=== PATIENT | female | born 2000 | race Caucasian/White ===

== ENCOUNTER 2021-04-16 18:44 | Emergency (ER) | payer OTHER ==
[~2021-04-16] VITALS: Ht 167.6 cm; Wt 100.2 kg
== END 2021-04-17 02:54 | disposition left against medical advice (07) ==
LOC: M ED 18:44
DX: Z53.21 Procedure and treatment not carried out due to patient leaving prior to being seen by health care provider (principal)

== ENCOUNTER → 2021-11-14 | Outpatient (CLI) | payer OTHER | LOC: M PLALAB 13:37 | PROVIDERS: ATTEND Obstetrics & Gynecology | DX: Z34.90 Encounter for supervision of normal pregnancy, unspecified, unspecified trimester (principal) ==

== ENCOUNTER → 2022-08-13 | Outpatient (CLI) | payer OTHER ==
[2022-08-13 15:13] LABS: HEMOGLOBIN 14.1 g/dl (12.0-15.5); MEAN CORPUSCULAR HEMOGLOBIN 31.6 pg (27.0-33.0); MEAN CORPUSCULAR HGB CONC 33.6 g/dl (32.0-36.5); MEAN CORPUSCULAR VOLUME 94.2 fl (80.0-96.0); PLATELET COUNT, AUTOMATED 334 10^3/uL (150-450); RED BLOOD COUNT 4.46 10^6/uL (4.00-5.40)
[2022-08-13 16:31] LABS: HIV 1&2 SCREEN ATELLICA NEGATIVE (NEGATIVE)
[2022-08-13 16:35] LABS: GC DNA AMPLIFICATION NEGATIVE (NEGATIVE)
== END ==
LOC: M PLALAB 10:30
PROVIDERS: ATTEND Advanced Practice Midwife
DX: Z34.81 Encounter for supervision of other normal pregnancy, first trimester (principal)

== ENCOUNTER → 2022-09-09 | Outpatient (REF) | payer OTHER | LOC: M SFHCWAGY 13:12 | PROVIDERS: ATTEND Obstetrics & Gynecology | DX: Z34.81 Encounter for supervision of other normal pregnancy, first trimester (principal); Z3A.00 Weeks of gestation of pregnancy not specified ==

== ENCOUNTER → 2022-10-09 | Outpatient (REF) | payer OTHER | LOC: M SMT 13:08 | PROVIDERS: ATTEND Advanced Practice Midwife | DX: Z34.82 Encounter for supervision of other normal pregnancy, second trimester (principal) ==

== ENCOUNTER → 2022-11-01 | Outpatient (CLI) | payer OTHER | LOC: M WHC 08:17 | PROVIDERS: ATTEND Advanced Practice Midwife | DX: Z34.82 Encounter for supervision of other normal pregnancy, second trimester (principal) ==

== ENCOUNTER → 2022-11-21 | Outpatient (CLI) | payer OTHER | LOC: M WHC 06:39 | PROVIDERS: ATTEND Obstetrics & Gynecology | DX: Z34.92 Encounter for supervision of normal pregnancy, unspecified, second trimester (principal); Z3A.23 23 weeks gestation of pregnancy ==

== ENCOUNTER → 2022-12-09 | Outpatient (CLI) | payer OTHER ==
[2022-12-09 16:32] LABS: HEMATOCRIT 32.4 % (36.0-47.0); HEMOGLOBIN 10.7 g/dl (12.0-15.5); MEAN CORPUSCULAR HEMOGLOBIN 31.8 pg (27.0-33.0); MEAN CORPUSCULAR VOLUME 96.4 fl (80.0-96.0); PLATELET COUNT, AUTOMATED 260 10^3/uL (150-450); RED BLOOD COUNT 3.36 10^6/uL (4.00-5.40); WHITE BLOOD COUNT 7.4 10^3/uL (4.0-10.0)
== END ==
LOC: M PLALAB 12:20
PROVIDERS: ATTEND Obstetrics & Gynecology
DX: Z34.92 Encounter for supervision of normal pregnancy, unspecified, second trimester (principal)

== ENCOUNTER → 2023-02-17 | Outpatient (REF) | payer OTHER | LOC: M PLALAB 14:23 | PROVIDERS: ATTEND Advanced Practice Midwife | DX: Z36.85 Encounter for antenatal screening for Streptococcus B (principal) ==

== ENCOUNTER → 2023-03-10 | Outpatient (CLI) | payer OTHER ==
[2023-03-10 13:59] LABS: HEMATOCRIT 35.1 % (36.0-47.0); HEMOGLOBIN 12.1 g/dl (12.0-15.5); MEAN CORPUSCULAR HEMOGLOBIN 32.8 pg (27.0-33.0); MEAN CORPUSCULAR HGB CONC 34.5 g/dl (32.0-36.5); MEAN CORPUSCULAR VOLUME 95.1 fl (80.0-96.0); PLATELET COUNT, AUTOMATED 233 10^3/uL (150-450); RED BLOOD COUNT 3.69 10^6/uL (4.00-5.40); WHITE BLOOD COUNT 9.4 10^3/uL (4.0-10.0)
[2023-03-10 14:23] LABS: TOTAL PROTEIN,RANDOM URINE 25.2 MG/DL (0.0-14.0)
[2023-03-10 14:25] LABS: URIC ACID 6.2 MG/DL (3.1-7.8)
[2023-03-10 14:27] LABS: CREATININE,RANDOM URINE 69.7 MG/DL; LDH LACTATE DEHYDROGENASE 157 U/L (120-246)
[2023-03-10 14:28] LABS: ALT/SGPT 14 U/L (7.0-40); AST/SGOT 16 U/L (<34); BILIRUBIN,TOTAL 0.3 MG/DL (0.3-1.2); CREATININE FOR GFR 0.66 MG/DL (0.55-1.30); GLOMERULAR FILTRATION RATE > 60.0 (>60)
== END ==
LOC: M PLALAB 11:16
PROVIDERS: ATTEND Specialist
DX: Z34.03 Encounter for supervision of normal first pregnancy, third trimester (principal)

== ENCOUNTER 2023-03-11 19:00 | Inpatient (IN) | payer OTHER ==
[~2023-03-11] VITALS: Ht 167.6 cm; Wt 107.0 kg
[2023-03-11] VITALS (9 sets, daily range): BP systolic 138–211; BP diastolic 86–127
[2023-03-11] MEDS ORDERED: TRANEXAMIC ACID INJection 1,000 MG in NS 100 ML IV PRN (19:50)
[2023-03-11] MEDS ORDERED: OXYTOCIN DRIP 30 UNITS in IV 1 EA IV PRN (19:50)
[2023-03-11] MEDS ORDERED: LIDOCAINE 1% MDV 20ML VIAL INFIL PRN (19:50)
[2023-03-11] MEDS ORDERED: CARBOPROST TROMETHAMINE 250 MCG/ML AMP IM PRN (19:50)
[2023-03-11] MEDS ORDERED: LABETALOL 100MG/20ML VIAL IV STA ×2 (20:08→20:31)
[2023-03-11] MEDS ORDERED: LABETALOL 100MG/20ML VIAL As Ordered ONE (20:09)
[2023-03-11] MEDS: miSOPROStol 50MCG 1/2 TABLET PO SCH (20:18)
[2023-03-11 20:22] LABS: HEMATOCRIT 33.8 % (36.0-47.0); HEMOGLOBIN 11.9 g/dl (12.0-15.5); MEAN CORPUSCULAR HEMOGLOBIN 32.6 pg (27.0-33.0); MEAN CORPUSCULAR HGB CONC 35.2 g/dl (32.0-36.5); MEAN CORPUSCULAR VOLUME 92.6 fl (80.0-96.0); PLATELET COUNT, AUTOMATED 237 10^3/uL (150-450); RED BLOOD COUNT 3.65 10^6/uL (4.00-5.40); WHITE BLOOD COUNT 8.3 10^3/uL (4.0-10.0)
[2023-03-11 20:48] LABS: URIC ACID 6.1 MG/DL (3.1-7.8)
[2023-03-11 20:50] LABS: LDH LACTATE DEHYDROGENASE 161 U/L (120-246)
[2023-03-11 20:51] LABS: ALT/SGPT 14 U/L (7.0-40); AST/SGOT 15 U/L (<34); BILIRUBIN,TOTAL 0.3 MG/DL (0.3-1.2); CREATININE FOR GFR 0.65 MG/DL (0.55-1.30); GLOMERULAR FILTRATION RATE > 60.0 (>60)
[2023-03-11] MEDS: LABETALOL 200 MG TAB PO SCH (21:07)
[2023-03-12] VITALS (25 sets, daily range): BP systolic 116–158; BP diastolic 66–104
[2023-03-12] MEDS: miSOPROStol 50MCG 1/2 TABLET PO SCH ×3 (00:18→09:50)
[2023-03-12] MEDS: LABETALOL 200 MG TAB PO SCH ×2 (08:23→22:09)
[2023-03-12 12:58] LABS: CREATININE,RANDOM URINE 62.7 MG/DL
[2023-03-12] MEDS ORDERED: OXYTOCIN DRIP 30 UNITS in IV 1 EA IV SCH (14:05)
[2023-03-12] MEDS ORDERED: LR 1,000 ML IV SCH (14:05)
[2023-03-12] MEDS ORDERED: OXYTOCIN 30UNITS IN 0.9% NaCl 500ML IV BAG As Ordered ONE (14:06)
[2023-03-12] MEDS ORDERED: ePHEDrine SULFATE 25 MG/5 ML(5MG/ML) SYRINGE IVP PRN (20:25)
[2023-03-12] MEDS ORDERED: NALOXONE INJ 0.4MG/1ML VIAL IV PRN (20:25)
[2023-03-12] MEDS ORDERED: LR 500 ML IV PRN (20:25)
[2023-03-12] MEDS ORDERED: EPIDURAL/PCA KEYS XX PRN (20:25)
[2023-03-12] MEDS ORDERED: FENTANYL/ROPIVACAINE/NACL BAG 100 ML EPIDURAL SCH (20:25)
[2023-03-12] MEDS ORDERED: ONDANSETRON 4MG 2ML VIAL IV PRN (20:25)
[2023-03-12] MEDS ORDERED: diphenhydrAMINE 50MG/ML VIAL IV PRN (20:25)
[2023-03-13 02:49] LABS: CORD GAS ABE V -6.3; CORD GAS HCO3 V 20.8 MMOL/L; CORD GAS O2 SAT V 35.1 %; CORD GAS PCO2 V 46.3 mmHg; CORD GAS PH V 7.27 UNITS; CORD GAS PO2 V 17.2 mmHg; CORD GAS SBC V 17.8 MMOL/L; CORD GAS TCO2 V 22.2 MMOL/L
[2023-03-13] MEDS ORDERED: OXYTOCIN 30UNITS IN 0.9% NaCl 500ML IV BAG As Ordered ONE (03:13)
[2023-03-13] MEDS ORDERED: ACETAMINOPHEN 500 MG TAB PO PRN (04:40)
[2023-03-13] MEDS ORDERED: DIBUCAINE 1% OINTMENT 30GM TOP PRN (04:40)
[2023-03-13] MEDS ORDERED: ACETAMINOPHEN TAB 650MG DOSE (2X325MG) PO PRN (04:40)
[2023-03-13] MEDS ORDERED: ANUSOL HC CREAM 30GM TOP PRN (04:40)
[2023-03-13] MEDS ORDERED: IBUPROFEN 600MG TAB PO PRN (04:40)
[2023-03-13] MEDS ORDERED: RHOGAM 300MCG (1500IU) INJ IM SCH (04:40)
[2023-03-13] MEDS ORDERED: MOM 30ML SUSPENSION UDC PO PRN (04:40)
[2023-03-13 06:19] VITALS: BP 134/80; O2SAT 97
[2023-03-13] MEDS: PRENATAL VITAMINS CHEWABLE TABLET PO SCH (09:56)
[2023-03-13] MEDS: FERROUS SULFATE 325MG TAB PO SCH (09:56)
[2023-03-13] MEDS: DOCUSATE SODIUM 100MG CAPSULE PO SCH ×2 (09:56→20:03)
[2023-03-13] MEDS: IBUPROFEN 800 MG TAB PO PRN ×2 (09:56→20:03)
[2023-03-13 10:00] VITALS: BP 120/61; O2SAT 98
[2023-03-13 18:00] VITALS: BP 135/89; O2SAT 98
[2023-03-14 06:00] VITALS: BP 136/85
[2023-03-14 06:56] LABS: HEMATOCRIT 28.6 % (36.0-47.0); HEMOGLOBIN 9.7 g/dl (12.0-15.5); MEAN CORPUSCULAR HEMOGLOBIN 32.6 pg (27.0-33.0); MEAN CORPUSCULAR HGB CONC 33.9 g/dl (32.0-36.5); PLATELET COUNT, AUTOMATED 194 10^3/uL (150-450); RED BLOOD COUNT 2.98 10^6/uL (4.00-5.40); WHITE BLOOD COUNT 13.4 10^3/uL (4.0-10.0)
[2023-03-14] MEDS: FERROUS SULFATE 325MG TAB PO SCH (08:18)
[2023-03-14] MEDS: IBUPROFEN 800 MG TAB PO PRN (08:18)
[2023-03-14] MEDS: PRENATAL VITAMINS CHEWABLE TABLET PO SCH (08:18)
[2023-03-14] MEDS: DOCUSATE SODIUM 100MG CAPSULE PO SCH (08:18)
[2023-03-15] MEDS ORDERED: MEASLES,MUMPS,RUBELLA VACCINE INJ (MMR-II) SC.IMMUN ONE (09:00)
== END 2023-03-14 14:25 | disposition home or self-care (01) | DRG 560 ==
LOC: M LDO 19:00 → M LDI 19:37 → M OBS 03-13 06:17
PROVIDERS: ADMIT Obstetrics & Gynecology; ATTEND Obstetrics & Gynecology
PROC: 3E033VJ Introduction of Other Hormone into Peripheral Vein, Percutaneous Approach (ICD-10-PCS; 2023-03-11)
PROC: 3E0P7VZ Introduction of Hormone into Female Reproductive, Via Natural or Artificial Opening (ICD-10-PCS; 2023-03-11)
PROC: 10907ZC Drainage of Amniotic Fluid, Therapeutic from Products of Conception, Via Natural or Artificial Opening (ICD-10-PCS; 2023-03-12)
PROC: 10E0XZZ Delivery of Products of Conception, External Approach (ICD-10-PCS; principal; 2023-03-13)
PROC: 0HQ9XZZ Repair Perineum Skin, External Approach (ICD-10-PCS; 2023-03-13)
DX: O14.94 Unspecified pre-eclampsia, complicating childbirth (principal); O32.6XX0 Maternal care for compound presentation, not applicable or unspecified; Z37.0 Single live birth; Z3A.39 39 weeks gestation of pregnancy; O70.0 First degree perineal laceration during delivery

== ENCOUNTER 2023-08-30 20:01 | Emergency (ER) | payer MEDICAID, OTHER ==
[~2023-08-30] VITALS: Ht 165.1 cm; Wt 90.4 kg
[2023-08-30 20:02] VITALS: BP 138/95; TEMP 98; O2SAT 100
[2023-08-30 21:02] LABS: BASO % 0.6 % (0.0-1.0); EOS # 0.1 10^3/uL (0.0-0.5); EOS % 2.2 % (0.0-3.0); HEMATOCRIT 39.3 % (36.0-47.0); HEMOGLOBIN 12.9 g/dl (12.0-15.5); LYMPH # 1.8 10^3/uL (1.5-5.0); LYMPH % 27.8 % (24.0-44.0); MEAN CORPUSCULAR HEMOGLOBIN 28.8 pg (27.0-33.0); MEAN CORPUSCULAR HGB CONC 32.8 g/dl (32.0-36.5); MEAN CORPUSCULAR VOLUME 87.7 fl (80.0-96.0); MONO # 0.5 10^3/uL (0.0-0.8); MONO % 7.7 % (2.0-8.0); NEUTROPHILS % 61.4 % (36.0-66.0); PLATELET COUNT, AUTOMATED 286 10^3/uL (150-450); RED BLOOD COUNT 4.48 10^6/uL (4.00-5.40); WHITE BLOOD COUNT 6.5 10^3/uL (4.0-10.0)
[2023-08-30 21:46] LABS: HCG, SERUM QUANTITATIVE 19.8 MIU/ML (<4.2)
[2023-08-30 21:48] LABS: BLOOD UREA NITROGEN 9 MG/DL (9-23); CALCIUM LEVEL 8.8 MG/DL (8.5-10.1); CARBON DIOXIDE LEVEL 25 MMOL/L (20-31); CHLORIDE LEVEL 106 MMOL/L (98-107); CREATININE FOR GFR 0.69 MG/DL (0.55-1.30); GLOMERULAR FILTRATION RATE > 60.0 (>60); GLUCOSE, FASTING 107 MG/DL (60-100); POTASSIUM SERUM 3.9 MMOL/L (3.5-5.1); SODIUM LEVEL 139 MMOL/L (136-145)
[2023-08-30 22:51] LABS: GC DNA AMPLIFICATION NEGATIVE (NEGATIVE)
[2023-08-30] MEDS ORDERED: metroNIDAZOLE (FLAGYL) 500MG TABLET PO ONE (23:00)
== END 2023-08-30 22:35 | disposition left against medical advice (07) ==
LOC: M ED 20:01
DX: N93.9 Abnormal uterine and vaginal bleeding, unspecified (principal); Z53.9 Procedure and treatment not carried out, unspecified reason

== ENCOUNTER 2023-09-08 04:50 | Emergency (ER) | payer OTHER ==
[~2023-09-08] VITALS: Ht 172.7 cm; Wt 89.3 kg
[2023-09-08 06:08] LABS: HCG, SERUM QUALITATIVE NEGATIVE (NEGATIVE)
[2023-09-08 07:46] LABS: BASO # 0.1 10^3/uL (0.0-0.2); BASO % 0.9 % (0.0-1.0); EOS # 0.2 10^3/uL (0.0-0.5); EOS % 2.8 % (0.0-3.0); HEMATOCRIT 36.1 % (36.0-47.0); HEMOGLOBIN 11.8 g/dl (12.0-15.5); LYMPH # 1.8 10^3/uL (1.5-5.0); LYMPH % 31.7 % (24.0-44.0); MEAN CORPUSCULAR HEMOGLOBIN 29.1 pg (27.0-33.0); MEAN CORPUSCULAR HGB CONC 32.7 g/dl (32.0-36.5); MEAN CORPUSCULAR VOLUME 89.1 fl (80.0-96.0); MONO # 0.5 10^3/uL (0.0-0.8); MONO % 9.1 % (2.0-8.0); NEUTROPHILS # 3.2 10^3/uL (1.5-8.5); NEUTROPHILS % 55.3 % (36.0-66.0); PLATELET COUNT, AUTOMATED 238 10^3/uL (150-450); RED BLOOD COUNT 4.05 10^6/uL (4.00-5.40); WHITE BLOOD COUNT 5.8 10^3/uL (4.0-10.0)
[2023-09-08 07:51] VITALS: BP 125/81; TEMP 97.6; O2SAT 99
[2023-09-08 08:14] LABS: ALBUMIN 3.3 G/DL (3.2-5.2); BILIRUBIN,DIRECT 0.3 MG/DL (<0.4); BILIRUBIN,TOTAL 0.9 MG/DL (0.3-1.2); CK-MB VALUE MASS 2.4 NG/ML (<3.6); TOTAL PROTEIN 6.2 G/DL (5.7-8.2)
[2023-09-08] MEDS: MAALOX 30 ML SUSP *UDC PO ONE (08:14)
[2023-09-08 08:15] LABS: MB/CK RELATIVE INDEX 0.97 (< OR =4)
== END 2023-09-08 09:04 | disposition home or self-care (01) ==
LOC: M ED 04:50
DX: R07.9 Chest pain, unspecified (principal); Z32.02 Encounter for pregnancy test, result negative

== ENCOUNTER 2024-03-28 15:43 | Emergency (ER) | payer OTHER ==
[~2024-03-28] VITALS: Ht 165.1 cm; Wt 86.4 kg
[2024-03-28 15:45] VITALS: BP 154/80; TEMP 98.2; O2SAT 98
[2024-03-28 16:21] LABS: BASO % 0.3 % (0.0-1.0); EOS # 0.1 10^3/uL (0.0-0.5); EOS % 1.2 % (0.0-3.0); HEMATOCRIT 41.6 % (36.0-47.0); HEMOGLOBIN 14.2 g/dl (12.0-15.5); LYMPH # 1.6 10^3/uL (1.5-5.0); LYMPH % 18.3 % (24.0-44.0); MEAN CORPUSCULAR HEMOGLOBIN 31.9 pg (27.0-33.0); MEAN CORPUSCULAR HGB CONC 34.1 g/dl (32.0-36.5); MEAN CORPUSCULAR VOLUME 93.5 fl (80.0-96.0); MONO # 0.6 10^3/uL (0.0-0.8); MONO % 6.7 % (2.0-8.0); NEUTROPHILS # 6.5 10^3/uL (1.5-8.5); NEUTROPHILS % 73.2 % (36.0-66.0); PLATELET COUNT, AUTOMATED 278 10^3/uL (150-450); RED BLOOD COUNT 4.45 10^6/uL (4.00-5.40); WHITE BLOOD COUNT 8.8 10^3/uL (4.0-10.0)
[2024-03-28 16:42] LABS: BLOOD UREA NITROGEN 10 MG/DL (9-23); CALCIUM LEVEL 9.4 MG/DL (8.5-10.1); CARBON DIOXIDE LEVEL 25 MMOL/L (20-31); CHLORIDE LEVEL 105 MMOL/L (98-107); CREATININE FOR GFR 0.72 MG/DL (0.55-1.30); GLOMERULAR FILTRATION RATE > 60.0 (>60); GLUCOSE, FASTING 99 MG/DL (60-100); POTASSIUM SERUM 4.4 MMOL/L (3.5-5.1); SODIUM LEVEL 138 MMOL/L (136-145)
[2024-03-28 16:57] LABS: HCG, SERUM QUANTITATIVE 44229.2 MIU/ML (<4.2)
[2024-03-28 17:29] LABS: Trichomonas vaginalis (AMP) NOT DETECTED (NEGATIVE)
[2024-03-28 17:53] LABS: GC DNA AMPLIFICATION NEGATIVE (NEGATIVE)
== END 2024-03-28 16:58 | disposition left against medical advice (07) ==
LOC: M ED 15:43
DX: Z53.21 Procedure and treatment not carried out due to patient leaving prior to being seen by health care provider (principal)

== ENCOUNTER → 2024-04-14 | Outpatient (CLI) | payer OTHER ==
[~2024-04-14] MED LIST: NITR100C3 PO
== END ==
LOC: M PLALAB 10:58
PROVIDERS: ATTEND Obstetrics & Gynecology
DX: Z34.80 Encounter for supervision of other normal pregnancy, unspecified trimester (principal)

== ENCOUNTER 2024-05-07 04:05 | Outpatient (CLI) | payer OTHER ==
[~2024-05-07] VITALS: Ht 165.1 cm; Wt 81.8 kg
[~2024-05-07 04:05] MED LIST changes: +CEFD1CAP9 PO; +PRENTAB45 PO
[2024-05-07 04:15] VITALS: BP 134/78
[2024-05-07] MEDS ORDERED: ACET-683 PO (04:20)
[2024-05-07 04:26] VITALS: BP 124/80
[2024-05-07] MEDS ORDERED: HOME MED LIST COMPLETE! XX SCH (04:35)
[2024-05-07 04:36] VITALS: BP 112/57
[2024-05-07 08:36] LABS: KETONE, URINE AUTO RFX NEGATIVE (NEGATIVE); LEUKOCYTE ESTERASE UR AUTO RFX 3+ (NEGATIVE); MUCUS, URINE RFX SMALL (NEGATIVE); NITRITE, URINE AUTO RFX NEGATIVE (NEGATIVE); RBC, URINE AUTO RFX 27 /HPF (0-3); SQUAM EPITHELIAL CELL UR AURFX 14 /HPF (0-6); TRANSITIONAL EPITHELIAL AU RFX 7 /HPF; WBC, URINE AUTO RFX 113 /HPF (0-3)
== END 2024-05-07 08:50 | disposition home or self-care (01) ==
LOC: MERGE 04:05 → M LDO 04:05
PROVIDERS: ATTEND Obstetrics & Gynecology
DX: O26.892 Other specified pregnancy related conditions, second trimester (principal); R10.2 Pelvic and perineal pain; Z87.59 Personal history of other complications of pregnancy, childbirth and the puerperium; Z3A.21 21 weeks gestation of pregnancy
CPT/HCPCS: 76816; 81001; 87086; G0463

== ENCOUNTER 2024-05-09 15:48 | Emergency (ER) | payer OTHER ==
[~2024-05-09] VITALS: Ht 165.1 cm; Wt 84.2 kg
[~2024-05-09 15:48] MED LIST changes: +ACET-683 PO
[2024-05-09 15:52] VITALS: BP 120/76; TEMP 97.7; O2SAT 97
== END 2024-05-09 17:44 | disposition left against medical advice (07) ==
LOC: MERGE 15:48 → M ED 15:48
DX: Z53.21 Procedure and treatment not carried out due to patient leaving prior to being seen by health care provider (principal)

== ENCOUNTER 2024-06-13 00:28 | Outpatient (CLI) | payer OTHER ==
[2024-06-13 00:31] VITALS: BP 129/91
[2024-06-13 00:42] VITALS: BP 128/84
[2024-06-13 00:52] VITALS: BP 125/82
[2024-06-13] MEDS ORDERED: HOME MED LIST COMPLETE! XX SCH (01:10)
== END 2024-06-13 03:46 | disposition home or self-care (01) ==
LOC: M LDO 00:28
PROVIDERS: ATTEND Obstetrics & Gynecology
DX: O26.892 Other specified pregnancy related conditions, second trimester (principal); R25.2 Cramp and spasm; Z87.59 Personal history of other complications of pregnancy, childbirth and the puerperium; Z3A.26 26 weeks gestation of pregnancy
CPT/HCPCS: 59025; G0463

== ENCOUNTER 2024-07-14 14:11 | Outpatient (CLI) | payer OTHER ==
[~2024-07-14] VITALS: Ht 165.1 cm; Wt 83.3 kg
[2024-07-14 14:30] VITALS: BP 124/76
[2024-07-14] MEDS ORDERED: PREN200C PO (14:34)
[2024-07-14] MEDS ORDERED: HOME MED LIST COMPLETE! XX SCH (14:35)
== END 2024-07-14 17:10 | disposition home or self-care (01) ==
LOC: M LDO 14:11
PROVIDERS: ATTEND Advanced Practice Midwife
DX: O26.893 Other specified pregnancy related conditions, third trimester (principal); O09.33 Supervision of pregnancy with insufficient antenatal care, third trimester; R10.30 Lower abdominal pain, unspecified; R10.2 Pelvic and perineal pain; Z91.198 Patient's noncompliance with other medical treatment and regimen for other reason; Z59.82 Transportation insecurity; Z3A.30 30 weeks gestation of pregnancy
CPT/HCPCS: 59025; G0463

== ENCOUNTER → 2024-07-28 | Outpatient (CLI) | payer OTHER ==
[~2024-07-28] MED LIST changes: +PREN200C PO
[2024-07-28 15:13] LABS: HEMATOCRIT 38.2 % (36.0-47.0); MEAN CORPUSCULAR HEMOGLOBIN 32.6 pg (27.0-33.0); MEAN CORPUSCULAR VOLUME 95.7 fl (80.0-96.0); PLATELET COUNT, AUTOMATED 225 10^3/uL (150-450); RED BLOOD COUNT 3.99 10^6/uL (4.00-5.40); WHITE BLOOD COUNT 9.3 10^3/uL (4.0-10.0)
[2024-07-28 15:18] LABS: GLUCOSE CHALLENGE TEST 1 HOUR 94 MG/DL (LESS THAN 140)
[2024-07-28 15:53] LABS: HIV 1&2 SCREEN NEGATIVE (NEGATIVE)
[2024-07-28 16:00] LABS: HEPATITIS C VIRUS ABY INDEX 0.03 INDEX (<0.8)
[2024-07-28 16:23] LABS: Trichomonas vaginalis (AMP) NOT DETECTED (NEGATIVE)
[2024-07-28 16:47] LABS: GC DNA AMPLIFICATION NEGATIVE (NEGATIVE)
== END ==
LOC: M PLALAB 10:02
PROVIDERS: ATTEND Obstetrics & Gynecology
DX: Z34.92 Encounter for supervision of normal pregnancy, unspecified, second trimester (principal)

== ENCOUNTER 2024-08-12 14:46 | Outpatient (CLI) | payer OTHER ==
[~2024-08-12] VITALS: Ht 165.1 cm; Wt 85.8 kg
[~2024-08-12 14:46] MED LIST changes: +PNV1TABL16 PO
[2024-08-12 15:22] VITALS: BP 107/65
[2024-08-12] MEDS ORDERED: HOME MED LIST COMPLETE! XX SCH (15:25)
[2024-08-12 16:55] VITALS: BP 115/65
== END 2024-08-12 17:20 | disposition home or self-care (01) ==
LOC: MERGE 14:46 → M LDO 14:46
PROVIDERS: ATTEND Obstetrics & Gynecology
DX: Z04.1 Encounter for examination and observation following transport accident (principal); Z3A.35 35 weeks gestation of pregnancy; Y92.9 Unspecified place or not applicable; Y93.9 Activity, unspecified; Y99.9 Unspecified external cause status
CPT/HCPCS: 36415; 59025; 85384; G0463

== ENCOUNTER → 2024-08-17 | Outpatient (REF) | payer OTHER ==
[~2024-08-17] MED LIST changes: -PNV1TABL16 PO
== END ==
LOC: M PLALAB 16:07
PROVIDERS: ATTEND Advanced Practice Midwife
DX: Z34.83 Encounter for supervision of other normal pregnancy, third trimester (principal); Z3A.36 36 weeks gestation of pregnancy

== ENCOUNTER 2024-08-20 16:16 | Outpatient (CLI) | payer OTHER ==
[~2024-08-20] VITALS: Ht 165.1 cm; Wt 85.5 kg
[~2024-08-20 16:16] MED LIST changes: +PNV1TABL16 PO
[2024-08-20 16:36] VITALS: BP 122/83
[2024-08-20] MEDS ORDERED: HOME MED LIST COMPLETE! XX SCH (16:40)
== END 2024-08-20 17:25 | disposition home or self-care (01) ==
LOC: M LDO 16:16
PROVIDERS: ATTEND Advanced Practice Midwife
DX: O26.893 Other specified pregnancy related conditions, third trimester (principal); O09.293 Supervision of pregnancy with other poor reproductive or obstetric history, third trimester; O09.893 Supervision of other high risk pregnancies, third trimester; O09.33 Supervision of pregnancy with insufficient antenatal care, third trimester; R10.84 Generalized abdominal pain; Z67.41 Type O blood, Rh negative; Z3A.36 36 weeks gestation of pregnancy
CPT/HCPCS: 59025; G0463

== ENCOUNTER 2024-08-22 00:20 | Outpatient (CLI) | payer OTHER ==
[~2024-08-22 00:20] MED LIST changes: -PNV1TABL16 PO
[2024-08-22 00:36] VITALS: BP 122/80
[2024-08-22] MEDS ORDERED: HOME MED LIST COMPLETE! XX SCH (00:55)
== END 2024-08-22 02:10 | disposition home or self-care (01) ==
LOC: M LDO 00:20
PROVIDERS: ATTEND Obstetrics & Gynecology
DX: O47.03 False labor before 37 completed weeks of gestation, third trimester (principal); O09.33 Supervision of pregnancy with insufficient antenatal care, third trimester; O09.893 Supervision of other high risk pregnancies, third trimester; Z87.59 Personal history of other complications of pregnancy, childbirth and the puerperium; Z67.41 Type O blood, Rh negative; Z3A.36 36 weeks gestation of pregnancy
CPT/HCPCS: 59025; G0463

== ENCOUNTER 2024-08-28 16:47 | Outpatient (CLI) | payer OTHER ==
[~2024-08-28] VITALS: Ht 165.1 cm; Wt 82.3 kg
[~2024-08-28 16:47] MED LIST changes: +PNV1TABL16 PO
[2024-08-28 17:06] VITALS: BP 119/79
[2024-08-28 18:05] VITALS: BP 109/59
== END 2024-08-28 18:50 | disposition home or self-care (01) ==
LOC: MERGE 16:47 → M LDO 16:47
PROVIDERS: ATTEND Obstetrics & Gynecology
DX: O47.1 False labor at or after 37 completed weeks of gestation (principal); Z3A.37 37 weeks gestation of pregnancy
CPT/HCPCS: 59025; G0463

== ENCOUNTER 2024-08-29 16:49 | Emergency (ER) | payer OTHER | END 2024-08-29 16:53 | disposition admitted as inpatient to this hospital (09) | LOC: M ED 16:49 → MERGE 16:49 → M ED 16:53 | DX: Z53.21 Procedure and treatment not carried out due to patient leaving prior to being seen by health care provider (principal) ==

== ENCOUNTER 2024-08-29 16:58 | Outpatient (CLI) | payer OTHER ==
[~2024-08-29] VITALS: Ht 165.1 cm; Wt 86.0 kg
[2024-08-29 17:18] VITALS: BP 126/74
[2024-08-29] MEDS ORDERED: HOME MED LIST COMPLETE! XX SCH (17:25)
== END 2024-08-29 17:59 | disposition home or self-care (01) ==
LOC: M LDO 16:58
PROVIDERS: ATTEND Obstetrics & Gynecology
DX: O47.1 False labor at or after 37 completed weeks of gestation (principal); O09.33 Supervision of pregnancy with insufficient antenatal care, third trimester; Z87.59 Personal history of other complications of pregnancy, childbirth and the puerperium; Z67.41 Type O blood, Rh negative; Z3A.37 37 weeks gestation of pregnancy
CPT/HCPCS: 59025; G0463

== ENCOUNTER 2024-09-06 11:56 | Inpatient (IN) | payer OTHER ==
[2024-09-06] VITALS (31 sets, daily range): BP systolic 102–206; BP diastolic 57–104; O2SAT 100
[2024-09-06] MEDS ORDERED: LIDOCAINE 1% MDV 20ML VIAL INFIL PRN (12:40)
[2024-09-06] MEDS ORDERED: CARBOPROST TROMETHAMINE 250 MCG/ML AMP IM PRN (12:40)
[2024-09-06] MEDS ORDERED: METHYLERGONOVINE MALEATE 0.2MG/ML 1ML VIAL IM PRN (12:40)
[2024-09-06] MEDS ORDERED: OXYTOCIN INJ 10UNITS/ML 1ML VIAL IM PRN (12:40)
[2024-09-06] MEDS: PENICILLIN G POTASSIUM 5 MU IV 5 MU in DEXTROSE 5% (D5W) MINI-BAG PLU 100 ML IV STA (13:02)
[2024-09-06] MEDS: LACTATED RINGER'S 1000 ML IV STA (13:02)
[2024-09-06 13:20] LABS: HEMOGLOBIN 12.4 g/dl (12.0-15.5); MEAN CORPUSCULAR HGB CONC 34.4 g/dl (32.0-36.5); MEAN CORPUSCULAR VOLUME 92.8 fl (80.0-96.0); PLATELET COUNT, AUTOMATED 180 10^3/uL (150-450); RED BLOOD COUNT 3.88 10^6/uL (4.00-5.40); WHITE BLOOD COUNT 6.5 10^3/uL (4.0-10.0)
[2024-09-06] MEDS ORDERED: diphenhydrAMINE 50MG/ML VIAL IV PRN (13:30)
[2024-09-06] MEDS ORDERED: EPIDURAL/PCA KEYS XX PRN (13:30)
[2024-09-06] MEDS ORDERED: LR 500 ML IV PRN (13:30)
[2024-09-06] MEDS ORDERED: ePHEDrine SULFATE 25 MG/5 ML(5MG/ML) SYRINGE IVP PRN (13:30)
[2024-09-06] MEDS ORDERED: ONDANSETRON 4MG 2ML VIAL IV PRN (13:30)
[2024-09-06] MEDS ORDERED: NALOXONE INJ 0.4MG/1ML VIAL IV PRN (13:30)
[2024-09-06] MEDS ORDERED: FENTANYL 2MCG/ML ROPIVACAINE 0.2% IN 0.9% NACL 100ML IVBAG As Ordered ONE (13:33)
[2024-09-06 13:44] LABS: URIC ACID 6.6 MG/DL (3.1-7.8)
[2024-09-06 13:46] LABS: LDH LACTATE DEHYDROGENASE 201 U/L (120-246)
[2024-09-06 13:47] LABS: ALT/SGPT 31 U/L (7.0-40); AST/SGOT 34 U/L (<34); BILIRUBIN,TOTAL 0.5 MG/DL (0.3-1.2); CREATININE FOR GFR 0.67 MG/DL (0.55-1.30); GLOMERULAR FILTRATION RATE > 90.0 (>60)
[2024-09-06 13:56] LABS: CREATININE,RANDOM URINE 247.4 MG/DL; TOTAL PROTEIN,RANDOM URINE 249.5 MG/DL (0.0-14.0)
[2024-09-06 14:13] LABS: HIV 1&2 SCREEN NEGATIVE (NEGATIVE)
[2024-09-06 14:21] LABS: HEPATITIS C VIRUS ABY INDEX 0.07 INDEX (<0.8)
[2024-09-06] MEDS: valACYclovir HCL 500 MG TAB PO ONE (15:40)
[2024-09-06] MEDS: LR 1,000 ML IV SCH (15:42)
[2024-09-06] MEDS: FENTANYL/ROPIVACAINE/NACL BAG 100 ML EPIDURAL SCH (15:42)
[2024-09-06] MEDS: PEN G POT 3,000,000 UNIT/50 ML 3,000,000 UNIT in IV 1 EA IV SCH (17:50)
[2024-09-06] MEDS: TRANEXAMIC ACID INJection 1,000 MG in NS 100 ML IV PRN (19:35)
[2024-09-06] MEDS: OXYTOCIN DRIP 30 UNITS in IV 1 EA IV PRN (19:36)
[2024-09-06] MEDS ORDERED: ACETAMINOPHEN 500 MG TAB PO PRN (19:55)
[2024-09-06] MEDS ORDERED: DIBUCAINE 1% OINTMENT 30GM TOP PRN (19:55)
[2024-09-06] MEDS ORDERED: IBUPROFEN 800 MG TAB PO PRN (19:55)
[2024-09-06] MEDS ORDERED: ACETAMINOPHEN 325 MG TAB PO PRN (19:55)
[2024-09-06] MEDS ORDERED: RHOGAM 300MCG (1500IU) INJ IM SCH (19:55)
[2024-09-06] MEDS ORDERED: DOCUSATE SODIUM 100MG CAPSULE PO PRN (19:55)
[2024-09-06] MEDS ORDERED: MOM 30ML SUSPENSION UDC PO PRN (19:55)
[2024-09-06] MEDS ORDERED: ANUSOL HC CREAM 30GM TOP PRN (19:55)
[2024-09-06] MEDS ORDERED: IBUPROFEN 600MG TAB PO PRN (19:55)
[2024-09-06] MEDS: valACYclovir HCL 500 MG TAB PO SCH (21:16)
[2024-09-07 06:14] VITALS: BP 126/84; O2SAT 100
[2024-09-07] MEDS: PRENATAL VITAMINS CHEWABLE TABLET PO SCH (09:00)
[2024-09-07 18:00] VITALS: BP 122/77; O2SAT 98
[2024-09-08 06:00] VITALS: BP 131/87; O2SAT 96
[2024-09-08] MEDS: MEASLES,MUMPS,RUBELLA VACCINE INJ (MMR-II) SC.IMMUN ONE (09:00)
== END 2024-09-08 12:45 | disposition home or self-care (01) | DRG 560 ==
LOC: M LDO 11:56 → M LDI 12:49 → M OBS 21:47
PROVIDERS: ADMIT Advanced Practice Midwife; ATTEND Advanced Practice Midwife
PROC: 10E0XZZ Delivery of Products of Conception, External Approach (ICD-10-PCS; principal; 2024-09-06)
PROC: 10907ZC Drainage of Amniotic Fluid, Therapeutic from Products of Conception, Via Natural or Artificial Opening (ICD-10-PCS; 2024-09-06)
PROC: 0HQ9XZZ Repair Perineum Skin, External Approach (ICD-10-PCS; 2024-09-06)
DX: O14.94 Unspecified pre-eclampsia, complicating childbirth (principal); O98.52 Other viral diseases complicating childbirth; Z37.0 Single live birth; Z3A.38 38 weeks gestation of pregnancy; O99.824 Streptococcus B carrier state complicating childbirth; B00.9 Herpesviral infection, unspecified; O70.0 First degree perineal laceration during delivery

== ENCOUNTER 2024-12-08 19:11 | Emergency (ER) | payer OTHER ==
[~2024-12-08] VITALS: Ht 165.1 cm; Wt 65.9 kg
[2024-12-08 20:30] LABS: AMPHETAMINES LEVEL URINE NEGATIVE (NEGATIVE); BARBITURATES URINE NEGATIVE (NEGATIVE); COCAINE METABOLITE URINE NEGATIVE (NEGATIVE)
[2024-12-08 20:31] LABS: BENZODIAZEPINES URINE NEGATIVE (NEGATIVE); METHADONE URINE NEGATIVE (NEGATIVE); OPIATES URINE NEGATIVE (NEGATIVE); PHENCYCLIDINE URINE NEGATIVE (NEGATIVE)
[2024-12-08 20:40] LABS: CANNABINOIDS URINE POSITIVE (NEGATIVE)
[2024-12-08 21:06] VITALS: BP 118/74; TEMP 97.2; O2SAT 100
== END 2024-12-08 22:17 | disposition left against medical advice (07) ==
LOC: M ED 19:11
DX: Z53.21 Procedure and treatment not carried out due to patient leaving prior to being seen by health care provider (principal)

== ENCOUNTER 2025-01-01 22:28 | Emergency (ER) | payer OTHER ==
[~2025-01-01] VITALS: Ht 165.1 cm; Wt 84.3 kg
[2025-01-01 22:57] LABS: BASO # 0.0 10^3/uL (0.0-0.2); BASO % 0.4 % (0.0-1.0); EOS # 0.3 10^3/uL (0.0-0.5); EOS % 2.9 % (0.0-3.0); LYMPH # 2.5 10^3/uL (1.5-5.0); LYMPH % 27.2 % (24.0-44.0); MONO # 0.6 10^3/uL (0.0-0.8); MONO % 6.5 % (2.0-8.0); NEUTROPHILS # 5.7 10^3/uL (1.5-8.5); NEUTROPHILS % 62.8 % (36.0-66.0); PLATELET COUNT, AUTOMATED 322 10^3/uL (150-450)
[2025-01-01 22:58] LABS: KETONE, URINE AUTO RFX NEGATIVE (NEGATIVE); NITRITE, URINE AUTO RFX NEGATIVE (NEGATIVE); RBC, URINE AUTO RFX 4 /HPF (0-3); SQUAM EPITHELIAL CELL UR AURFX 19 /HPF (0-6); WBC, URINE AUTO RFX 4 /HPF (0-3)
[2025-01-01 22:59] LABS: LEUKOCYTE ESTERASE UR AUTO RFX TRACE (NEGATIVE)
[2025-01-01 23:38] LABS: ALT/SGPT 43 U/L (7.0-40); AST/SGOT 32 U/L (<34); CALCIUM LEVEL 9.4 MG/DL (8.5-10.1); CARBON DIOXIDE LEVEL 27 MMOL/L (20-31); CHLORIDE LEVEL 102 MMOL/L (98-107); CREATININE FOR GFR 0.71 MG/DL (0.55-1.30); GLOMERULAR FILTRATION RATE > 90.0 (>60); HCG, SERUM QUANTITATIVE < 2.6 MIU/ML (<4.2); POTASSIUM SERUM 4.2 MMOL/L (3.5-5.1); SODIUM LEVEL 138 MMOL/L (136-145)
[2025-01-02] MEDS ORDERED: COLA100C5 PO (05:42)
[2025-01-02 05:45] VITALS: BP 103/75; TEMP 97.8; O2SAT 97
[2025-01-02] MEDS: MAGNESIUM CITRATE 300 ML BTL PO ONE (05:45)
== END 2025-01-02 05:55 | disposition home or self-care (01) ==
LOC: M ED 22:28
DX: K59.00 Constipation, unspecified (principal); F17.290 Nicotine dependence, other tobacco product, uncomplicated; Z91.040 Latex allergy status

== ENCOUNTER 2025-01-12 17:30 | Emergency (ER) | payer OTHER ==
[~2025-01-12] VITALS: Ht 165.1 cm; Wt 86.0 kg
[~2025-01-12 17:30] MED LIST changes: +COLA100C5 PO
[2025-01-12 17:31] VITALS: BP 121/86; TEMP 98.1; O2SAT 99
== END 2025-01-12 19:00 | disposition left against medical advice (07) ==
LOC: M ED 17:30
DX: Z53.21 Procedure and treatment not carried out due to patient leaving prior to being seen by health care provider (principal)

== ENCOUNTER 2025-01-18 21:09 | Emergency (ER) | payer OTHER ==
[~2025-01-18] VITALS: Ht 165.1 cm; Wt 85.9 kg
[2025-01-19] MEDS: ACETAMINOPHEN 325 MG TAB PO ONE (03:45)
[2025-01-19 03:59] LABS: APPEARANCE, URINE HAZY (CLEAR); BACTERIA, URINE AUTO NEGATIVE (NEGATIVE); BILIRUBIN, URINE AUTO NEGATIVE (NEGATIVE); BLOOD, URINE BLOOD 2+ (NEGATIVE); GLUCOSE, URINE (UA) AUTO NEGATIVE (NEGATIVE); KETONE, URINE AUTO 2+ mg/dL (NEGATIVE); LEUKOCYTE ESTERASE, URINE AUTO NEGATIVE (NEGATIVE); MUCUS, URINE SMALL (NEGATIVE); NITRITE, URINE AUTO NEGATIVE (NEGATIVE); PROTEIN, URINE AUTO 1+ mg/dL (NEGATIVE); RBC, URINE AUTO 33 /HPF (0-3); SPECIFIC GRAVITY URINE AUTO 1.028 (1.002-1.035); SQUAMOUS EPITHELIAL CELL UR AU 18 /HPF (0-6); UROBILINOGEN, URINE AUTO 2.0 mg/dL (0.0-2.0); WBC, URINE AUTO 5 /HPF (0-3)
[2025-01-19 04:06] LABS: BASO # 0.0 10^3/uL (0.0-0.2); BASO % 0.2 % (0.0-1.0); EOS # 0.0 10^3/uL (0.0-0.5); EOS % 0.2 % (0.0-3.0); LYMPH # 0.8 10^3/uL (1.5-5.0); LYMPH % 6.4 % (24.0-44.0); MONO # 0.6 10^3/uL (0.0-0.8); MONO % 4.6 % (2.0-8.0); NEUTROPHILS # 11.5 10^3/uL (1.5-8.5); NEUTROPHILS % 88.2 % (36.0-66.0); PLATELET COUNT, AUTOMATED 247 10^3/uL (150-450)
[2025-01-19 04:27] LABS: ALT/SGPT 35 U/L (7.0-40); AST/SGOT 23 U/L (<34); CALCIUM LEVEL 9.3 MG/DL (8.5-10.1); CARBON DIOXIDE LEVEL 26 MMOL/L (20-31); CHLORIDE LEVEL 102 MMOL/L (98-107); CREATININE FOR GFR 0.78 MG/DL (0.55-1.30); GLOMERULAR FILTRATION RATE > 90.0 (>60); POTASSIUM SERUM 4.0 MMOL/L (3.5-5.1); SODIUM LEVEL 137 MMOL/L (136-145)
[2025-01-19 05:54] LABS: HCG, SERUM QUALITATIVE NEGATIVE (NEGATIVE)
[2025-01-19 07:00] VITALS: BP 120/66; TEMP 99.2; O2SAT 97
[2025-01-19] MEDS: IBUPROFEN 800 MG TAB PO ONE (07:13)
== END 2025-01-19 07:23 | disposition home or self-care (01) ==
LOC: M ED 21:09
DX: B34.9 Viral infection, unspecified (principal); K59.00 Constipation, unspecified; Z91.040 Latex allergy status; Z79.899 Other long term (current) drug therapy

== ENCOUNTER 2025-01-29 20:05 | Emergency (ER) | payer OTHER ==
[~2025-01-29] VITALS: Ht 165.1 cm; Wt 84.2 kg
[2025-01-29 20:49] LABS: KETONE, URINE AUTO RFX NEGATIVE (NEGATIVE); MUCUS, URINE RFX SMALL (NEGATIVE); NITRITE, URINE AUTO RFX NEGATIVE (NEGATIVE); RBC, URINE AUTO RFX 34 /HPF (0-3); SQUAM EPITHELIAL CELL UR AURFX 22 /HPF (0-6)
[2025-01-29 20:50] LABS: LEUKOCYTE ESTERASE UR AUTO RFX 2+ (NEGATIVE); WBC, URINE AUTO RFX 56 /HPF (0-3)
[2025-01-29] MEDS ORDERED: CEPH500C PO (21:07)
[2025-01-29] MEDS: CEPHALEXIN 500 MG CAP PO ONE (21:26)
[2025-01-29 21:28] LABS: URINE PREG TEST NEGATIVE (NEGATIVE)
[2025-01-29 21:56] VITALS: BP 124/84; TEMP 98.7; O2SAT 99
== END 2025-01-29 21:57 | disposition home or self-care (01) ==
LOC: M ED 20:05
DX: N39.0 Urinary tract infection, site not specified (principal); Z79.2 Long term (current) use of antibiotics; Z91.040 Latex allergy status

== ENCOUNTER 2025-03-01 13:19 | Emergency (ER) | payer OTHER ==
[~2025-03-01] VITALS: Ht 165.1 cm; Wt 86.3 kg
[~2025-03-01 13:19] MED LIST changes: +CEPH500C PO
[2025-03-01] MEDS: SUCRALFATE 1 GM TAB PO ONE (13:50)
[2025-03-01] MEDS: PANTOPRAZOLE 40MG TAB PO ONE (13:50)
[2025-03-01 14:08] LABS: APPEARANCE, URINE HAZY (CLEAR); BACTERIA, URINE AUTO 1+ (NEGATIVE); BILIRUBIN, URINE AUTO NEGATIVE (NEGATIVE); BLOOD, URINE BLOOD NEGATIVE (NEGATIVE); GLUCOSE, URINE (UA) AUTO NEGATIVE (NEGATIVE); KETONE, URINE AUTO NEGATIVE (NEGATIVE); LEUKOCYTE ESTERASE, URINE AUTO 3+ (NEGATIVE); NITRITE, URINE AUTO NEGATIVE (NEGATIVE); PROTEIN, URINE AUTO NEGATIVE (NEGATIVE); RBC, URINE AUTO 8 /HPF (0-3); SPECIFIC GRAVITY URINE AUTO 1.013 (1.002-1.035); SQUAMOUS EPITHELIAL CELL UR AU 10 /HPF (0-6); UROBILINOGEN, URINE AUTO 0.2 mg/dL (0.0-2.0); WBC, URINE AUTO 8 /HPF (0-3)
[2025-03-01 14:10] LABS: BASO # 0.1 10^3/uL (0.0-0.2); BASO % 0.8 % (0.0-1.0); EOS # 0.4 10^3/uL (0.0-0.5); EOS % 5.7 % (0.0-3.0); LYMPH # 2.1 10^3/uL (1.5-5.0); LYMPH % 31.6 % (24.0-44.0); MONO # 0.4 10^3/uL (0.0-0.8); MONO % 6.7 % (2.0-8.0); NEUTROPHILS # 3.6 10^3/uL (1.5-8.5); NEUTROPHILS % 54.9 % (36.0-66.0); PLATELET COUNT, AUTOMATED 296 10^3/uL (150-450)
[2025-03-01 14:30] LABS: ALT/SGPT 27 U/L (7.0-40); AST/SGOT 24 U/L (<34); CALCIUM LEVEL 9.4 MG/DL (8.5-10.1); CARBON DIOXIDE LEVEL 28 MMOL/L (20-31); CHLORIDE LEVEL 104 MMOL/L (98-107); CREATININE FOR GFR 0.68 MG/DL (0.55-1.30); GLOMERULAR FILTRATION RATE > 90.0 (>60); POTASSIUM SERUM 4.3 MMOL/L (3.5-5.1); SODIUM LEVEL 140 MMOL/L (136-145)
[2025-03-01 14:42] LABS: HCG, SERUM QUALITATIVE NEGATIVE (NEGATIVE)
[2025-03-01] MEDS ORDERED: PROT20TA11 PO (16:40)
[2025-03-01] MEDS ORDERED: CARA1TAB6 PO (16:40)
[2025-03-01 16:45] VITALS: BP 113/60; TEMP 97.4; O2SAT 99
== END 2025-03-01 16:44 | disposition home or self-care (01) ==
LOC: M ED 13:19
DX: K29.00 Acute gastritis without bleeding (principal); F17.200 Nicotine dependence, unspecified, uncomplicated; F12.10 Cannabis abuse, uncomplicated; F10.10 Alcohol abuse, uncomplicated; Z91.040 Latex allergy status; Z79.2 Long term (current) use of antibiotics; Z79.899 Other long term (current) drug therapy